=== PATIENT | male | born 1985 | race Caucasian/White ===

== ENCOUNTER 2017-09-22 13:37 | Emergency (ER) | payer SELFPAY ==
[2017-09-22] MEDS ORDERED: Acetaminophen 500 MG TAB ONE (13:57)
[2017-09-22] MEDS ORDERED: Azithromycin 250 MG TAB ONE (14:39)
== END 2017-09-22 14:43 | disposition home or self-care (01) ==
LOC: BURERS 13:37
DX: J02.9 Acute pharyngitis, unspecified (principal)
CPT/HCPCS: 87081; 87430; 99283